=== PATIENT | male | born 1995 | race Caucasian/White ===

== ENCOUNTER 2017-03-26 13:31 | Outpatient (CLI) | payer BC ==
--- NOTE | 2017-03-26 14:33 | RAD ---
CHEST TWO VIEWS: Comparison: 06-12-16 History: Primary spontaneous pneumothorax. FINDINGS: Normal cardiac silhouette. Pulmonary vessels and hilum are normal. Costophrenic angles are clear. No consolidation or mass. Small left sided pneumothorax between the posterior left third and fourth rib. No osseous abnormalities. IMPRESSION: Small left sided pneumothorax. Results of the study discussed with Dr. Cotton 03-26-17 at 1:45 p.m . Code CR POS: CLAIRE
== END 2017-03-26 13:32 | disposition home or self-care (01) ==
LOC: RAD 13:31
PROVIDERS: ATTEND Thoracic Surgery (Cardiothoracic Vascular Surgery)
DX: J93.11 Primary spontaneous pneumothorax (principal)
CPT/HCPCS: 71046

== ENCOUNTER 2017-04-01 15:02 | Outpatient (CLI) | payer BC ==
--- NOTE | 2017-04-01 15:47 | RAD ---
PA AND LATERAL CHEST: Date: 04/01/17 HISTORY: Spontaneous pneumothorax. COMPARISON: 03/26/17. FINDINGS: The previously seen small left apical pneumothorax is no longer visualized on this exam. Lungs are cl ear. Cardiac silhouette and pulmonary vasculature are within normal limits. No other interval change. IMPRESSION: 1. Resolution of the previously seen left-sided pneumothorax. No pneumothorax is seen on today's exa m. 2. No acute cardiopulmonary process. POS: OFF
== END 2017-04-01 15:03 | disposition home or self-care (01) ==
LOC: RAD 15:02
PROVIDERS: ATTEND Thoracic Surgery (Cardiothoracic Vascular Surgery)
DX: J93.11 Primary spontaneous pneumothorax (principal)
CPT/HCPCS: 71046